=== PATIENT | female | born 1995 | race African-American/Black ===

== ENCOUNTER 2024-12-29 13:29 | Emergency (ER) | payer MEDICAID, OTHER ==
[~2024-12-29] VITALS: Ht 162.6 cm; Wt 74.4 kg
[2024-12-29 14:48] VITALS: BP 123/78; TEMP 98
[2024-12-29] MEDS ORDERED: LIDOCAINE 1% INJ 50 ML MDV IJ ONE (15:10)
[2024-12-29] MEDS: LIDOCAINE HCL/PF 1% 30 ML VIAL TP ONE (15:18)
[2024-12-29 16:10] VITALS: O2SAT 97
== END 2024-12-29 16:10 | disposition home or self-care (01) ==
LOC: ER 13:33
DX: S61.211A Laceration without foreign body of left index finger without damage to nail, initial encounter (principal); J45.909 Unspecified asthma, uncomplicated; W26.8XXA Contact with other sharp object(s), not elsewhere classified, initial encounter; Y93.89 Activity, other specified; Y92.89 Other specified places as the place of occurrence of the external cause; Y99.8 Other external cause status
CPT/HCPCS: 99283; 12001; 73130; J3490 ×2

== ENCOUNTER 2025-01-05 11:15 | Emergency (ER) | payer OTHER ==
[~2025-01-05] VITALS: Ht 162.6 cm; Wt 55.8 kg
[2025-01-05 11:33] VITALS: BP 128/75; TEMP 98.2
[2025-01-05 12:22] VITALS: O2SAT 100
== END 2025-01-05 12:22 | disposition home or self-care (01) ==
LOC: ER 11:19
DX: S61.211D Laceration without foreign body of left index finger without damage to nail, subsequent encounter (principal); J45.909 Unspecified asthma, uncomplicated; W26.0XXD Contact with knife, subsequent encounter